=== PATIENT | female | born 1970 | race Caucasian/White ===

== ENCOUNTER → 2016-12-19 | Outpatient (CLI) | payer OTHER ==
--- NOTE | 2016-12-20 13:11 | MM ---
Reason for exam: screening (asymptomatic). Last mammogram was performed 1 year ago. History: Took hormonal contraceptives for 4 years. Physical Findings: A clinical breast exam by your physician is recommended on an annual basis and results should be correlated with mammographic findings. MG 3D Screening Mammo W/Cad Bilateral CC and MLO view(s) were taken. Prior study comparison: December 12, 2015, bilateral MG 3d screening mammo w/cad. December 12, 2014, left breast MG work up mamm w CAD LT. The breast tissue is heterogeneously dense. This may lower the sensitivity of mammography. Finding: There are a few typically benign round calcifications in both breasts. There is no discrete abnormality. ASSESSMENT: Benign, BI-RAD 2 RECOMMENDATION: Routine screening mammogram of both breasts in 1 year.
== END | disposition home or self-care (01) ==
LOC: RADMAMWWP 10:52
PROVIDERS: ATTEND Family Medicine
DX: Z12.31 Encounter for screening mammogram for malignant neoplasm of breast (principal)
CPT/HCPCS: 77063; G0202

== ENCOUNTER → 2017-01-01 | Outpatient (CLI) | payer OTHER ==
--- NOTE | 2017-01-01 23:15 | WWHP ---
DATE OF DICTATION: 01/01/2017 CHIEF COMPLAINT: The patient is here for her routine gynecologic exam. HISTORY OF PRESENT ILLNESS: This is a 46-year-old G2, P2 with an LMP of 12/21/16. Her is status post vasectomy. Patient is here to establish with this office. She states her periods are regular every month and last 6 to 7 days with 4 days of heavier flow. She states they are also very crampy. During the heavy days she has to change her protection up to every 1 to 1-1/2 hours. She previously saw Dr. Brand for her gynecologic care and was offered endometrial ablation, but she decided against this. She states her periods have been fairly heavy throughout her life. She is otherwise without complaints. PAST MEDICAL HISTORY: Chronic hypertension, which is controlled without medications. MEDICATIONS: 1. NyQuil p.r.n. for insomnia. 2. Tylenol p.r.n. 3. Multivitamin 1 daily. ALLERGIES: NO KNOWN DRUG ALLERGIES. PAST SURGICAL HISTORY: Appendectomy at age 14. PAST OB HISTORY: Two vaginal deliveries. PAST LEGAL PROCESS SPECIALIST HISTORY: Menarche was at age 13. Menses are regular every month with heavier and painful bleeding as above. She has no history of STDs. SOCIAL HISTORY: She denies tobacco and drug use and has about one alcohol-containing beverage per day. She has been since 1991 and does not work outside the home. FAMILY HISTORY: Grandmother had uterine and colon cancer. REVIEW OF SYSTEMS: She has lost about 10 pounds over the last year, and this has been with diet and exercise. The most she has weighed is 140, and that was about 18 months ago. She denies respiratory or GI problems. CARDIAC: She states she has an occasional palpitation which does not seem to cause her problems, and this is not very often. PHYSICAL EXAM: Blood pressure 137/90. Height 5 feet 4 inches. Weight 117 pounds. Temperature 97.4, pulse 64. This is a well-developed, well-nourished white female who is alert and oriented x3, in no acute distress. HEENT is within normal limits. NECK: Supple without mass or thyromegaly. CHEST AND LUNGS: Clear to auscultation. HEART: Regular rate and rhythm. Breasts are without mass or discharge. Axillary exam is negative for adenopathy. BACK: Negative for CVA tenderness. ABDOMEN: Soft, nontender, without palpable masses. PELVIC EXAM: Normal external genitalia. Cervix and vagina appear normal. There is no unusual discharge. The uterus is midposition, nongravid size and nontender. There are no palpable adnexal masses or tenderness. Rectal exam is negative for mass or tenderness and is negative for occult blood. EXTREMITIES: Nontender. IMPRESSION: 1. A 46-year-old female with mild dysmenorrhea and hypermenorrhea with normal gynecologic exam. 2. The patient's is status post vasectomy. PLAN: 1. Pap smear was performed. 2. Self breast examination was discussed. 3. Her borderline blood pressure was discussed. I have recommended that she do regular blood pressure checks and follow up with her primary caregiver for blood pressure elevations. 4. We have discussed options for her hypermenorrhea and dysmenorrhea. I recommended a trial of meclofenamate sodium, but she is declining it at this time. She will call if she changes her mind. We have also discussed other options, including endometrial ablation. 5. She will return in one year and p.r.n.
== END | disposition home or self-care (01) ==
LOC: WWCWWP 11:08
PROVIDERS: ATTEND Obstetrics & Gynecology
DX: Z53.9 Procedure and treatment not carried out, unspecified reason (principal)

== ENCOUNTER → 2017-07-23 | Outpatient (CLI) | payer OTHER ==
--- NOTE | 2017-07-23 13:21 | MR ---
PRE AND POSTCONTRAST ENHANCED MRI OF THE BRAIN: CLINICAL HISTORY: Dizziness and tremor CONTRAST: 5 ML Multihance Multiplanar and multispin-echo imaging of the brain was performed both before and after the administr ation of contrast. The ventricles, basal cisterns and sulci overlying the cerebral convexities are within normal limits. There is no evidence for midline shift or mass effect. Acute intracranial hemorrhage or extra-axial collection is not evident. On the inversion recovery data sets are between 15 and 20 foci of increased signal within the subcort ical and deep white matter of both cerebral hemispheres. Largest lesion on the right is seen within t he centrum semioval bilaterally measuring 4 mm and on the left within the left frontal region measuri ng 6.5 mm. The findings are nonspecific however I cannot exclude demyelinating disorder. Additional p ossibilities include sequela of chronic migraine headaches, vasculitis, sequela of Lyme's disease aruna ng other possibilities. Following contrast administration, there is no evidence for pathologic enhancement or enhancing mass. Chronic sinusitis of the sphenoid sinus. Mastoid air cells are well-aerated. IMPRESSION: 1. Nonspecific white matter changes. Demyelinating disease is not excluded.
== END | disposition home or self-care (01) ==
LOC: RADMRIMAIN 11:59
PROVIDERS: ATTEND Family Medicine
DX: R90.89 Other abnormal findings on diagnostic imaging of central nervous system (principal)
CPT/HCPCS: 70553; A9581

== ENCOUNTER → 2018-02-06 | Outpatient (CLI) | payer OTHER ==
--- NOTE | 2018-02-11 10:49 | MM ---
Reason for exam: screening (asymptomatic). Last mammogram was performed 1 year and 2 months ago. History: Took hormonal contraceptives for 4 years. Physical Findings: A clinical breast exam by your physician is recommended on an annual basis and results should be correlated with mammographic findings. MG 3D Screening Mammo Wo Cad Bilateral CC and MLO view(s) were taken. Prior study comparison: December 19, 2016, bilateral MG 3d screening mammo w/cad. December 12, 2015, bilateral MG 3d screening mammo w/cad. The breast tissue is heterogeneously dense. This may lower the sensitivity of mammography. Finding: There are typically benign round calcifications in both breasts. There is no discrete abnormality. ASSESSMENT: Benign, BI-RAD 2 RECOMMENDATION: Routine screening mammogram of both breasts in 1 year.
== END | disposition home or self-care (01) ==
LOC: RADMAMWWP 10:40
PROVIDERS: ATTEND Obstetrics & Gynecology
DX: Z12.31 Encounter for screening mammogram for malignant neoplasm of breast (principal)
CPT/HCPCS: 77063; 77067

== ENCOUNTER → 2018-06-09 | Outpatient (CLI) | payer OTHER ==
--- NOTE | 2018-06-09 16:34 | US ---
EXAMINATION TYPE: US thyroid st tissue head/neck DATE OF EXAM: 06/09/2018 COMPARISON: NONE CLINICAL HISTORY: E07.89 THYROID PAIN. GLAND SIZE: Right Lobe: 4.5 x 1.3 x 1.4 cm Overall Parenchyma: homogenous Left Lobe: 4.2 x 1.4 x 1.2 cm Overall Parenchyma: homogeneous Isthmus Thickness: 0.4 cm NODULES RIGHT: # of nodules measured on right: 0 LEFT: # of nodules measured on left: 0 ISTHMUS: # of nodules measured in the isthmus: 0 Bilateral neck scanned, no evidence of lymphadenopathy. IMPRESSION: 1. Normal bilateral thyroid lobes
== END ==
LOC: RADUSWWP 10:08
PROVIDERS: ATTEND Obstetrics & Gynecology
DX: E07.89 Other specified disorders of thyroid (principal)
CPT/HCPCS: 76536

== ENCOUNTER → 2019-04-24 | Outpatient (CLI) | payer OTHER ==
--- NOTE | 2019-04-26 09:43 | MM ---
Reason for exam: screening (asymptomatic). Last mammogram was performed 1 year and 3 months ago. History: Took hormonal contraceptives for 4 years. Physical Findings: A clinical breast exam by your physician is recommended on an annual basis and results should be correlated with mammographic findings. MG 3D Screening Mammo W/Cad Bilateral CC and MLO view(s) were taken. Prior study comparison: February 06, 2018, bilateral MG 3d screening mammo wo cad. December 19, 2016, bilateral MG 3d screening mammo w/cad. The breast tissue is extremely dense which could obscure a lesion on mammography. No significant changes when compared with prior studies. ASSESSMENT: Benign, BI-RAD 2 RECOMMENDATION: Routine screening mammogram of both breasts in 1 year.
== END | disposition home or self-care (01) ==
LOC: RADMAMWWP 08:10
PROVIDERS: ATTEND Obstetrics & Gynecology
DX: Z12.31 Encounter for screening mammogram for malignant neoplasm of breast (principal)
CPT/HCPCS: 77063; 77067

== ENCOUNTER → 2019-05-31 | Outpatient (CLI) | payer OTHER ==
[2019-05-31 16:09] LABS: Basophils % (A) 1 %; Eosinophils # (A) 0.2 k/uL (0-0.7); Eosinophils % (A) 3 %; HCT 37.4 % (34.0-46.0); HGB 12.5 gm/dL (11.4-16.0); Lymphocytes # (A) 1.5 k/uL (1.0-4.8); Lymphocytes % (A) 23 %; MCH 32.3 pg (25.0-35.0); MCHC 33.5 g/dL (31.0-37.0); MCV 96.4 fL (80.0-100.0); Monocytes # (A) 0.4 k/uL (0-1.0); Monocytes % (A) 6 %; Neutrophils # (A) 4.1 k/uL (1.3-7.7); Neutrophils % (A) 65 %; Platelet Count 232 k/uL (150-450); RBC 3.88 m/uL (3.80-5.40); RDW 12.2 % (11.5-15.5); WBC 6.3 k/uL (3.8-10.6)
== END | disposition home or self-care (01) ==
LOC: LABWHC1 15:25
PROVIDERS: ATTEND Obstetrics & Gynecology
DX: Z01.812 Encounter for preprocedural laboratory examination (principal); N92.0 Excessive and frequent menstruation with regular cycle; D25.9 Leiomyoma of uterus, unspecified
CPT/HCPCS: 36415; 85025

== ENCOUNTER 2019-06-14 08:34 | Day surgery (SDC) | payer OTHER ==
[2019-06-07 13:15] VITALS: BMI 21.6
[~2019-06-14 08:34] MED LIST: DEXAMETHASONE SOD PHOSPHATE 10 MG/ML 1 ML VIAL IV ONE; HYDROmorphone 0.5 MG/0.5 ML SYRINGE IVP PRN; LACTATED RINGERS 1,000 ML IV SCH; LIDOCAINE 1% 20 ML VIAL (10MG/ML) FOR IV START INTRADERMA PRN; ONDANSETRON 4 MG/2 ML VIAL IVP ONE; Pre Op ABX Message 1 EACH MISC MISCELLANE ONE; SCOPOLAMINE 1.5MG/72HR PATCH TRANSDERM ONE
[2019-06-14] MEDS ORDERED: KETOROLAC 30 MG/ML 1 ML VIAL ONE (10:17)
[2019-06-14] MEDS ORDERED: LIDOCAINE 1% INJ 10MG/ML (20 ML MDV) ONE (10:17)
[2019-06-14] MEDS ORDERED: MIDAZOLAM 2 MG/2 ML VIAL ONE (10:17)
[2019-06-14] MEDS ORDERED: PROPOFOL 10 MG/ML 20 ML VIAL IV ONE (10:17)
[2019-06-14] MEDS ORDERED: fentaNYL (PF) 50 MCG/ML 2 ML AMP ONE (10:17)
--- NOTE | 2019-06-14 10:53 | P.OP ---
Date of Procedure: 06/14/19 Preoperative Diagnosis: Hypermenorrhea, fibroid uterus Postoperative Diagnosis: Same Procedure(s) Performed: Hysteroscopy, NovaSure endometrial ablation Anesthesia: SAMMIA Surgeon: Tammy Brand Estimated Blood Loss (ml): 5 IV fluids (ml): 500 Urine output (ml): 0 Pathology: none sent Condition: stable Disposition: PACU Description of Procedure: Patient is brought to the operating suite where general anesthetic is administered without difficulty. She's placed in the dorsal lithotomy position. The cervix, vagina, perineal bodies are all prepped and draped in the usual sterile fashion. The appropriate timeout is performed to assure proper patient and procedural identification. Urine hCG is negative. Examination under anesthesia reveals an anteverted uterus with a small fibroid, negative adnexa bilaterally. Bladder is drained, but is noted to be empty. Weighted speculum was placed into the vagina. Anterior lip of the cervix is grasped with an Allis clamp. The uterus sounds to a depth of 10.5 cm. The cervix is gently and systematically dilated using Hanks dilators. Hysteroscope was introduced and the cavity is distended with sterile saline. No and trough uterine fibroids are noted, no defects or polyps. Hysteroscope was removed. The NovaSure wand is placed and seated properly. Uterine width of 4.7 cm, depth of 6.0 cm is chosen. The machine is properly calibrated and enabled. 410 seconds the procedure is carried out. When it is completed the wand is reduced and removed. Hysteroscope was once again placed and the cavity is distended, and now noted to be uniformly blanched. All sponge needle and enhancement counts are correct at the end of the procedure. Patient is brought back to recovery room in very good condition with stable vital signs including a pulse of 64, blood pressure 116/69, 100% O2 saturation. Toradol is given prior to leaving the operative suite. Patient will follow-up with me in the office in 2 weeks.
[2019-06-14 10:55] VITALS: RESP 16; TEMP 97.7
[2019-06-14] MEDS ORDERED: PROMETHAZINE INJ 25 MG/ML 1 ML VIAL IVPB ONE (11:25)
[2019-06-14 12:49] VITALS: BP 140/78; PULSE 74
== END 2019-06-14 13:05 | disposition home or self-care (01) ==
LOC: OR 08:34
PROVIDERS: ATTEND Obstetrics & Gynecology
DX: D25.9 Leiomyoma of uterus, unspecified (principal); N94.3 Premenstrual tension syndrome; E78.5 Hyperlipidemia, unspecified; G43.909 Migraine, unspecified, not intractable, without status migrainosus; E07.9 Disorder of thyroid, unspecified; Z90.49 Acquired absence of other specified parts of digestive tract; Z98.890 Other specified postprocedural states; Z79.899 Other long term (current) drug therapy; J30.2 Other seasonal allergic rhinitis; Z88.2 Allergy status to sulfonamides; Z80.0 Family history of malignant neoplasm of digestive organs; Z80.49 Family history of malignant neoplasm of other genital organs; Z83.1 Family history of other infectious and parasitic diseases; Z83.49 Family history of other endocrine, nutritional and metabolic diseases; Z87.891 Personal history of nicotine dependence; Z79.890 Hormone replacement therapy
CPT/HCPCS: 81025; 58563; J2250; J1100; J2550; J2405; J2001; J3010; J1885; J2704; J1170

== ENCOUNTER → 2020-06-30 | Outpatient (CLI) | payer OTHER ==
--- NOTE | 2020-07-03 09:59 | MM ---
Reason for exam: screening (asymptomatic). Last mammogram was performed 1 year and 2 months ago. History: Took hormonal contraceptives for 4 years. Physical Findings: A clinical breast exam by your physician is recommended on an annual basis and results should be correlated with mammographic findings. MG 3D Screening Mammo W/Cad Bilateral CC and MLO view(s) were taken. Prior study comparison: April 24, 2019, bilateral MG 3d screening mammo w/cad. February 06, 2018, bilateral MG 3d screening mammo wo cad. The breast tissue is heterogeneously dense. This may lower the sensitivity of mammography. Stable benign calcifications. There is no discrete abnormality. No significant changes when compared with prior studies. ASSESSMENT: Benign, BI-RAD 2 RECOMMENDATION: Routine screening mammogram of both breasts in 1 year.
== END | disposition home or self-care (01) ==
LOC: RADMAMWWP 10:40
PROVIDERS: ATTEND Obstetrics & Gynecology
DX: Z12.31 Encounter for screening mammogram for malignant neoplasm of breast (principal)
CPT/HCPCS: 77063; 77067

== ENCOUNTER → 2021-08-09 | Outpatient (CLI) | payer OTHER ==
--- NOTE | 2021-08-13 08:46 | MM ---
Reason for exam: screening (asymptomatic). Last mammogram was performed 1 year and 1 month ago. History: Took hormonal contraceptives for 4 years. Physical Findings: A clinical breast exam by your physician is recommended on an annual basis and results should be correlated with mammographic findings. MG 3D Screening Mammo W/Cad Bilateral CC and MLO view(s) were taken. Prior study comparison: June 30, 2020, bilateral MG 3d screening mammo w/cad. April 24, 2019, bilateral MG 3d screening mammo w/cad. The breast tissue is heterogeneously dense. This may lower the sensitivity of mammography. Medial right CC asymmetric density does not persist on 3D images. No significant changes when compared with prior studies. ASSESSMENT: Benign, BI-RAD 2 RECOMMENDATION: Routine screening mammogram of both breasts in 1 year. Patient should continue monthly self breast exams. A negative report should not preclude additional follow up of suspicious palpable abnormalities.
== END | disposition home or self-care (01) ==
LOC: RADMAMWWP 11:11
PROVIDERS: ATTEND Obstetrics & Gynecology
DX: Z12.31 Encounter for screening mammogram for malignant neoplasm of breast (principal)
CPT/HCPCS: 77063; 77067

== ENCOUNTER → 2022-08-12 | Outpatient (CLI) | payer OTHER ==
--- NOTE | 2022-08-13 09:07 | MM ---
Reason for Exam: Screening (asymptomatic). Last screening mammogram was performed 12 month(s) ago. Patient History: Menarche at age 13. First Full-Term at age 24. Perimenopausal. Patient used Hormonal Contraceptives for 4 years. Last menstrual period: 05/22/2022 Risk Values: Kassandra 5 year model risk: 0.9%. NCI Lifetime model risk: 8.0%. Prior Study Comparison: 04/24/2019 Bilateral Screening Mammogram, [facility]. 06/30/2020 Bilateral Screening Mammogram, [facility]. 08/09/2021 Bilateral Screening Mammogram, [facility]. Tissue Density: The breast tissue is heterogeneously dense. This may lower the sensitivity of mammography. Findings: Analyzed By CAD. There is no suspicious group of microcalcifications or new suspicious mass in either breast. Overall Assessment: Negative, BI-RAD 1 Management: Screening Mammogram of both breasts in 1 year. A clinical breast exam by your physician is recommended on an annual basis and results should be correlated with mammographic findings. [facility] will attempt to contact patient to return for supplemental views and ultrasound if indicated. Electronically signed and approved by: Gilles Kirkland DO
== END | disposition home or self-care (01) ==
LOC: RADMAMWWP 10:34
PROVIDERS: ATTEND Obstetrics & Gynecology
DX: Z12.31 Encounter for screening mammogram for malignant neoplasm of breast (principal)
CPT/HCPCS: 77063; 77067